=== PATIENT | female | born 1990 | race Caucasian/White ===

== ENCOUNTER 2017-08-13 10:18 | Emergency (ER) | payer SELFPAY ==
[~2017-08-13] VITALS: Ht 170.2 cm; Wt 61.4 kg
[~2017-08-13 10:18] MED LIST: DIFLUCAN150 MG PO; OMNICEF 300MG300 MG PO; PHENERGAN 25 TA25 MG PO; TESTOPEL PELLET75 MG PO; ZOFRAN ODT4 MG PO
[2017-08-13 10:22] VITALS: TEMP 97
[2017-08-13 11:14] LABS: BASO # 0.1 (0.0-0.2); BASO % 0.5 % (0.0-2.0); EOS # 0.1 (0.0-0.7); EOS % 0.5 % (0-4.0); GRAN # 11.3 (1.4-6.5); GRAN % 85.9 % (42.2-75.2); HEMATOCRIT 45.3 % (37.0-47.0); LYMPH % 7.9 % (20.0-51.0); MEAN CELL VOLUME 90 fl (80.0-100.0); MEAN CORPUSCULAR HEMOGLOBIN 30 pg (27.0-31.0); MEAN CORPUSCULAR HGB CONC 33 g/dl (33.0-37.0); MEAN PLATELET VOLUME 9.5 fl (7.4-10.4); MONO # 0.6 (0.1-0.6); MONO % 4.7 % (1.7-9.3); PLATELET COUNT 248 K/mm3 (130-400); RED BLOOD COUNT 5.03 M/mm3 (4.10-5.30); WHITE BLOOD COUNT 13.1 K/mm3 (4.8-10.8)
[2017-08-13 11:30] LABS: ADJUSTED CALCIUM 8.8 mg/dL (8.4-10.2); ALBUMIN 4.5 gm/dL (3.5-5.0); BILIRUBIN,TOTAL 0.8 mg/dL (0.0-1.0); CALCIUM 9.2 mg/dL (8.4-10.2); CREATININE, serum 0.77 mg/dL (0.52-1.25); POTASSIUM 3.8 mmol/L (3.4-5.0); TOTAL PROTEIN 7.6 gm/dL (6.4-8.2)
[2017-08-13 11:53] LABS: COLLECTION METHOD CLEAN CATCH
[2017-08-13 12:08] LABS: pH GASTRIC CONTENTS 4
[2017-08-13 12:10] LABS: MUCOUS Present /lpf; PH 5 (5-8); SQUAMOUS EPITHELIAL 0-2 /hpf; URINE APPEARANCE Hazy; URINE BACTERIA None Seen /hpf; URINE BILIRUBIN Negative (NEGATIVE); URINE BLOOD Negative (NEGATIVE); URINE COLOR Yellow; URINE GLUCOSE Negative (NEGATIVE); URINE KETONE 1+ (NEGATIVE); URINE LEUKOCYTE ESTERASE 3+ (NEGATIVE); URINE PROTEIN(semi-quant) 1+ (NEGATIVE)
[2017-08-13 15:37] VITALS: BP 111/74; PULSE 86
== END 2017-08-13 15:37 | disposition home or self-care (01) ==
LOC: COL.ER 10:18
PROVIDERS: Physician Assistant Medical
DX: G43.A0 Cyclical vomiting, in migraine, not intractable (principal); N39.0 Urinary tract infection, site not specified; F12.10 Cannabis abuse, uncomplicated
CPT/HCPCS: J1170; J2405; J2550; J7030